=== PATIENT | male | born 1970 | race Two or more races ===

== ENCOUNTER 2018-08-26 10:55 | Emergency (ER) | payer MEDICAID ==
[~2018-08-26] VITALS: Ht 185.4 cm; Wt 86.2 kg
[2018-08-26 11:14] VITALS: BP 134/87
[2018-08-26] MEDS ORDERED: SILVER SULFADIAZINE 1 % TOPICAL CREAM 50GM TOP ONE (12:00)
[2018-08-26] MEDS ORDERED: IBUPROFEN 800 MG TAB PO ONE (12:00)
== END 2018-08-26 12:39 | disposition home or self-care (01) ==
LOC: ER 10:55
DX: T22.232A Burn of second degree of left upper arm, initial encounter (principal); X11.8XXA Contact with other hot tap-water, initial encounter; Y93.89 Activity, other specified; Y99.8 Other external cause status; Y92.89 Other specified places as the place of occurrence of the external cause
CPT/HCPCS: 16000

== ENCOUNTER 2022-08-04 08:57 | Inpatient (IN) | payer MEDICAID, OTHER ==
[~2022-08-04] VITALS: Ht 185.4 cm; Wt 95.8 kg
[2022-08-04 09:28] LABS: Basophils # (auto) 0.1 10 ^3/uL (0-0.2); Basophils % (auto) 0.4 % (0.0-2.0); Eosinophils # (auto) 0.1 10 ^3/uL (0-0.8); Eosinophils % (auto) 0.7 % (0.0-7.0); Hematocrit 45.1 % (41.0-53.0); Hemoglobin 15.5 g/dL (13.5-17.5); Lymphocytes # (auto) 1.1 10 ^3/uL (0.4-5.4); Lymphocytes % (auto) 7.1 % (10.0-50.0); Mean Corpuscular Hemoglobin 30.7 pg (28.0-32.0); Mean Corpuscular Hgb Conc. 34.4 g/dL (32.0-36.0); Mean Corpuscular Volume 89.3 fL (80.0-100.0); Monocytes # (auto) 0.9 10 ^3/uL (0-1.3); Monocytes % (auto) 6.1 % (0.0-12.0); Neutrophils # (auto) 13.2 10 ^3/uL (1.6-8.6); Neutrophils % (auto) 85.7 % (37.0-80.0); Nucleated Red Blood Cells % 0.1 %; Red Blood Cells 5.06 10^6/uL (4.5-5.90); Red Cell Distribution Width 13.2 % (11.8-14.3); White Blood Cell 15.4 10^3/uL (4.4-10.8)
[2022-08-04 09:54] LABS: Albumin 3.8 g/dL (3.4-5.0); Calcium 9.4 mg/dL (8.5-10.1); Magnesium 2.2 mg/dL (1.6-2.6); Potassium 3.9 mmol/L (3.5-5.1)
[2022-08-04 09:57] LABS: BUN/Creatinine Ratio 17.4 (10.0-20.0); Bilirubin, Total 0.7 mg/dL (0.2-1.0); Total Protein 7.3 g/dL (6.4-8.2)
[2022-08-04] MEDS ORDERED: IOHEXOL 300 MG/ML 100ML BOTTLE IJ ONE (10:14)
[2022-08-04] MEDS ORDERED: MORPHINE SULFATE 4 MG/ML SYR/VIAL IV ONE (10:15)
[2022-08-04] MEDS ORDERED: SODIUM CHLORIDE 0.9% 1,000 ML IV ONE ×3 (10:15→14:15)
[2022-08-04] MEDS ORDERED: ONDANSETRON HCL 4 MG/2 ML VIAL IV ONE (10:15)
[2022-08-04] MEDS ORDERED: MORPHINE SULFATE INJ 2 MG/ml SYRG IV ONE (11:00)
[2022-08-04] MEDS ORDERED: PIPERACILLIN-TAZO 4.5GM 100 ML IV ONE (11:15)
[2022-08-04] MEDS ORDERED: HYDROmorphone HCL 2 MG/ML VL/or syr IV ONE ×2 (12:00→16:45)
[2022-08-04 13:07] LABS: INR 0.97 (0.9-1.15)
[2022-08-04] MEDS ORDERED: MIDAZOLAM HCL 2MG/2ML 2ml VIAL (1mg/ml) ONE (13:47)
[2022-08-04] MEDS ORDERED: fentaNYL CITRATE 100 MCG/2 ML VL ONE (13:47)
[2022-08-04] MEDS ORDERED: KETOROLAC TROMETH 30 MG/ML 1ML VIAL ONE (13:48)
[2022-08-04] MEDS ORDERED: DexAMETHasone SOD PHOS 10MG/1ML VIAL INJ ONE (13:48)
[2022-08-04] MEDS ORDERED: GLYCOPYRROLATE 0.2 MG/ML 1ML VIAL ONE (13:48)
[2022-08-04] MEDS ORDERED: ePHEDrine SULFATE 50 MG/ML AMP ONE (13:48)
[2022-08-04] MEDS ORDERED: ONDANSETRON HCL 4 MG/2 ML VIAL ONE (13:48)
[2022-08-04] MEDS ORDERED: LIDOCAINE 2% (LOCAL ANESTH.) PF 5ml SDV ONE (13:48)
[2022-08-04] MEDS ORDERED: ONDANSETRON HCL 4 MG/2 ML VIAL IV PRN (14:00)
[2022-08-04] MEDS ORDERED: SODIUM CHLORIDE 0.9% 2,000 ML IV ONE (14:00)
[2022-08-04] MEDS ORDERED: cefOXitin 2GM/100ML 100 ML IV SCH (14:00)
[2022-08-04] MEDS ORDERED: LIDOCAINE 1%-Mpf/Epinephrine 1:200,000 ONE (14:57)
[2022-08-04] MEDS ORDERED: BUPIVACAINE 0.25% INJ 50ML VIAL ONE (14:57)
[2022-08-04] MEDS ORDERED: SUCCINYLCHOLINE CHLORIDE 20 MG/ML 10ML VIAL IV ONE (14:59)
[2022-08-04] MEDS ORDERED: NEOSTIGMINE 1 MG/ML INJ (10mg/10ML VIAL) IV ONE (14:59)
[2022-08-04] MEDS ORDERED: ROCURONIUM 10MG/ML 10ML VIAL IV ONE (14:59)
[2022-08-04] MEDS ORDERED: METOCLOPRAMIDE HCL 5MG/ml INJ 2ml VIAL IV PRN (15:00)
[2022-08-04] MEDS ORDERED: HYDROmorphone HCL 2 MG/ML VL/or syr IV PRN ×2 (15:00)
[2022-08-04] MEDS ORDERED: MORPHINE SULFATE INJ 2 MG/ml SYRG IV PRN (15:00)
[2022-08-04] MEDS ORDERED: SUGAMMADEX 200mg/2ml Vial (100MG/ML) IV ONE ×4 (16:39→16:50)
[2022-08-04] MEDS: cefOXitin 2GM/100ML 100 ML IV SCH ×2 (18:36→18:40)
[2022-08-04 19:39] LABS: Lactic Acid w/Reflex 2.5 mmol/L (0.4-2.0)
[2022-08-04 22:00] VITALS: BP 167/110
[2022-08-04] MEDS: metroNIDAZOLE 500MG/100ML 100 ML IV SCH (22:22)
[2022-08-04 22:30] VITALS: BP 158/68
[2022-08-05] VITALS (8 sets, daily range): BP systolic 111–167; BP diastolic 8–110
[2022-08-05] MEDS: cefOXitin 2GM/100ML 100 ML IV SCH ×2 (01:57→09:54)
[2022-08-05] MEDS: metroNIDAZOLE 500MG/100ML 100 ML IV SCH ×3 (05:27→22:20)
[2022-08-05 06:20] LABS: Basophils # (auto) 0 10 ^3/uL (0-0.2); Basophils % (auto) 0.1 % (0.0-2.0); Eosinophils # (auto) 0 10 ^3/uL (0-0.8); Hematocrit 42.7 % (41.0-53.0); Hemoglobin 14.6 g/dL (13.5-17.5); Lymphocytes # (auto) 0.5 10 ^3/uL (0.4-5.4); Lymphocytes % (auto) 4.2 % (10.0-50.0); Mean Corpuscular Hgb Conc. 34.1 g/dL (32.0-36.0); Mean Corpuscular Volume 90.9 fL (80.0-100.0); Monocytes # (auto) 0.8 10 ^3/uL (0-1.3); Monocytes % (auto) 6.1 % (0.0-12.0); Neutrophils # (auto) 11.4 10 ^3/uL (1.6-8.6); Neutrophils % (auto) 89.6 % (37.0-80.0); Red Cell Distribution Width 13.3 % (11.8-14.3); White Blood Cell 12.7 10^3/uL (4.4-10.8)
[2022-08-05 06:37] LABS: Potassium 4.4 mmol/L (3.5-5.1)
[2022-08-05 06:47] LABS: Albumin 3.1 g/dL (3.4-5.0); BUN/Creatinine Ratio 13.5 (10.0-20.0); Bilirubin, Total 0.6 mg/dL (0.2-1.0); Calcium 8.6 mg/dL (8.5-10.1); Total Protein 7.1 g/dL (6.4-8.2)
[2022-08-05] MEDS: ENOXAPARIN SOD 40 MG/0.4 ML SYRINGE SC SCH (09:54)
[2022-08-05] MEDS: PANTOPRAZOLE 40 MG/10 ML VIAL INJ IV SCH (09:54)
[2022-08-05] MEDS: MORPHINE SULFATE INJ 2 MG/ml SYRG IV PRN (09:57)
[2022-08-05] MEDS ORDERED: cefTRIAXone 1GM/50ML D5W 50 ML IV ONE (16:30)
[2022-08-06 05:00] VITALS: BP 114/79
[2022-08-06] MEDS: metroNIDAZOLE 500MG/100ML 100 ML IV SCH ×2 (05:37→15:04)
[2022-08-06 08:00] VITALS: BP 153/97
[2022-08-06 09:00] VITALS: BP 153/97
[2022-08-06] MEDS ORDERED: cefTRIAXone 1GM/50ML D5W 50 ML IV SCH (09:00)
[2022-08-06] MEDS: PANTOPRAZOLE 40 MG/10 ML VIAL INJ IV SCH (10:20)
[2022-08-06] MEDS: ENOXAPARIN SOD 40 MG/0.4 ML SYRINGE SC SCH (10:20)
[2022-08-06] MEDS: MORPHINE SULFATE INJ 2 MG/ml SYRG IV PRN (10:35)
[2022-08-06] MEDS ORDERED: HYDR-4902 PO (11:05)
[2022-08-06] MEDS ORDERED: LEVO500T31 PO (11:05)
[2022-08-06] MEDS ORDERED: METR500T PO (11:05)
[2022-08-06 13:00] VITALS: BP 147/78
[2022-08-06 14:17] VITALS: BP 153/97
[2022-08-06 16:54] VITALS: BP 134/89
== END 2022-08-06 18:59 | disposition home or self-care (01) | DRG 710 ==
LOC: EDBD 08:57 → ER 08:57 → OVERFLOW 14:05 → WEST WING 18:13
PROVIDERS: ADMIT Nurse Practitioner Family; ATTEND Family Medicine
PROC: 0DTJ4ZZ Resection of Appendix, Percutaneous Endoscopic Approach (ICD-10-PCS; principal; 2022-08-04 16:05)
DX: A41.9 Sepsis, unspecified organism (principal); K56.7 Ileus, unspecified; K35.80 Unspecified acute appendicitis; E86.0 Dehydration; E66.9 Obesity, unspecified; F17.200 Nicotine dependence, unspecified, uncomplicated; Z87.11 Personal history of peptic ulcer disease; Z68.27 Body mass index [BMI] 27.0-27.9, adult; Z20.822 Contact with and (suspected) exposure to COVID-19
CPT/HCPCS: 36415; 71045; 74177; 80053; 83605; 83690; 83735; 84484; 85025; 85610; 85730; 86850; 86900; 86901; 87426; 93005; 96361; 96365; 96375; C9113; G0378; J0330; J0694; J0696; J1100; J1885; J2001; J2250; J2405; J2543; J3490